=== PATIENT | male | born 1950 | race Caucasian/White ===

== ENCOUNTER 2023-06-09 10:25 | Inpatient (IN) | payer OTHER ==
[~2023-06-09] VITALS: Ht 180.3 cm; Wt 76.4 kg
[~2023-06-09 10:25] MED LIST: QUET50TA15 PO
[2023-06-09] MEDS ORDERED: SODIUM CHLORIDE 0.9% 1,000 ML IV ONE ×2 (10:45→12:30)
[2023-06-09] MEDS ORDERED: ACETAMINOPHEN 1000 MG/ISO-OSM 100 ML IV ONE (10:45)
[2023-06-09 10:56] LABS: BASOPHILS % (AUTO) 0.7 % (0.0-2.0); EOSINOPHILS % (AUTO) 0.4 % (1.0-6.0); HEMOGLOBIN 10.1 g/dL (13.5-17.5); LYMPHOCYTES # (AUTO) 1.3 K/uL (1.0-4.8); LYMPHOCYTES % (AUTO) 15.2 % (22.0-44.0); MEAN CORPUSCULAR HEMOGLOBIN 27.9 pg (26.0-34.0); MEAN CORPUSCULAR HGB CONC 32.7 G/dL (31.0-37.0); MEAN CORPUSCULAR VOLUME 85 fL (80-100); MONOCYTES # (AUTO) 1.7 K/uL (0.1-1.0); NEUTROPHILS # (AUTO) 5.5 K/uL (1.8-7.7); NEUTROPHILS % (AUTO) 63.7 % (40.0-70.0); PLATELET COUNT (AUTO) 261 K/uL (150-450); RED BLOOD CELL COUNT(AUTO) 3.64 MIL/uL (4.50-5.90); RED CELL DISTRIBUTION WIDTH 14.7 % (11.5-14.5)
[2023-06-09 11:06] LABS: ANION GAP 13 mmol/L (8-16); CALCIUM, TOTAL 8.9 mg/dL (8.8-10.5); CARBON DIOXIDE 25 mmol/L (22-29); CHLORIDE 101 mmol/L (98-107); CREATININE 1.56 mg/dL (0.60-1.30); GLOMERULAR FILTR. RATE CALC 44 mL/min (>60); GLUCOSE,RANDOM 165 mg/dL (70-110); POTASSIUM 4.8 mmol/L (3.5-5.1); SODIUM SERUM 139 mmol/L (136-145)
[2023-06-09 11:11] LABS: INR 1.3 (0.9-1.1)
[2023-06-09 11:18] LABS: LACTIC ACID 1.1 mmol/L (0.4-2.0)
[2023-06-09 11:25] LABS: B-TYPE NATRIURETIC PEPTIDE 78 pg/mL (0-100)
[2023-06-09 11:31] LABS: ALANINE AMINOTRANSFERASE 10 U/L (12-78); ALBUMIN 3.2 g/dL (3.4-5.0); ALKALINE PHOSPHATASE 102 U/L (46-116); ASPARTATE AMINOTRANSFERASE 14 U/L (15-37); BILIRUBIN,TOTAL 0.8 mg/dL (0.1-1.0); CREATINE KINASE, TOTAL ONLY 78 U/L (39-308)
[2023-06-09] MEDS ORDERED: CefTRIAXone 1 GM/DEXTROSE 50 ML IV ONE (11:45)
[2023-06-09] MEDS ORDERED: AZITHROMYCIN 500 MG/NS 250 ML IV ONE (11:45)
[2023-06-09 12:04] LABS: COVID AG,FIA SOURCE NASOPHARYNGEAL
[2023-06-09] MEDS ORDERED: ACETAMINOPHEN 325 MG TABLET PO PRN (12:30)
[2023-06-09] MEDS ORDERED: ONDANSETRON HCL 4 MG/2 ML VIAL IVP PRN (12:30)
[2023-06-09] MEDS ORDERED: *CLINICAL-LEVOFLOXACIN IVPB DOSING CLINICAL ONE (12:30)
[2023-06-09 12:41] LABS: INFLUENZA TYPE A NEGATIVE FOR TYPE A (NEGATIVE); INFLUENZA TYPE B NEGATIVE FOR TYPE B (NEGATIVE)
[2023-06-09] MEDS ORDERED: LEVOFLOXACIN 500 MG/D5% WATER 100 ML IV ONE (14:00)
[2023-06-09] MEDS: HEPARIN SODIUM,PORCINE 5,000 UNITS/ML VIAL SQ SCH (16:19)
[2023-06-09] MEDS: CARVEDILOL 6.25 MG TABLET PO SCH (18:50)
[2023-06-09] MEDS: DOCUSATE SODIUM 100 MG CAPSULE PO SCH (22:25)
[2023-06-09 23:14] VITALS: BP 101/86; PULSE 109; RESP 22; TEMP 99.5; O2SAT 95
[2023-06-10] MEDS: HEPARIN SODIUM,PORCINE 5,000 UNITS/ML VIAL SQ SCH ×4 (00:46→23:47)
[2023-06-10 00:47] LABS: APPEARANCE,URINE CLEAR (CLEAR); BILIRUBIN,URINE NEGATIVE (NEGATIVE); GLUCOSE, URINE (UA) NEGATIVE (NEGATIVE); KETONES,URINE NEGATIVE (NEGATIVE); LEUKOCYTE ESTERASE ,URINE NEGATIVE (NEGATIVE); NITRATE,URINE NEGATIVE (NEGATIVE); OCCULT BLOOD,URINE NEGATIVE (NEGATIVE); PH,URINE 5.5 (5.0-8.0); PROTEIN,URINE 30-70 mg/dL (NEGATIVE); SPECIFIC GRAVITIY, URINE 1.008 (1.003-1.030); UROBILINOGEN,URINE <=1.0 mg/dL (<=1.0)
[2023-06-10 04:44] VITALS: BP 143/84; PULSE 99; RESP 20; TEMP 98.8
[2023-06-10 07:32] VITALS: BP 165/86; PULSE 98; RESP 18; TEMP 98.2
[2023-06-10] MEDS: CARVEDILOL 6.25 MG TABLET PO SCH ×2 (09:33→20:41)
[2023-06-10] MEDS: DOCUSATE SODIUM 100 MG CAPSULE PO SCH ×2 (09:34→21:00)
[2023-06-10] MEDS: FAMOTIDINE 20 MG TABLET PO SCH (09:34)
[2023-06-10 11:01] VITALS: BP 146/83; PULSE 86; RESP 21; TEMP 97.8
[2023-06-10] MEDS ORDERED: LEVOFLOXACIN 500 MG/D5% WATER 100 ML IV SCH (14:00)
[2023-06-10 15:13] VITALS: BP 138/68; PULSE 86; RESP 20; TEMP 98.2
[2023-06-10] MEDS: LEVOFLOXACIN 500 MG TABLET PO SCH (15:40)
[2023-06-10 19:21] VITALS: BP 128/63; PULSE 96; RESP 17; TEMP 98.3
[2023-06-10 23:30] VITALS: BP 131/62; PULSE 82; RESP 19; TEMP 98.5
[2023-06-11 03:28] VITALS: BP 120/63; PULSE 81; RESP 19; TEMP 98.3
[2023-06-11 08:12] VITALS: BP 132/74; PULSE 76; RESP 18; TEMP 98
[2023-06-11] MEDS: CARVEDILOL 6.25 MG TABLET PO SCH ×2 (08:25→20:30)
[2023-06-11] MEDS: HEPARIN SODIUM,PORCINE 5,000 UNITS/ML VIAL SQ SCH ×2 (08:25→15:57)
[2023-06-11] MEDS: FAMOTIDINE 20 MG TABLET PO SCH (08:26)
[2023-06-11] MEDS: LEVOFLOXACIN 500 MG TABLET PO SCH (08:26)
[2023-06-11] MEDS: DOCUSATE SODIUM 100 MG CAPSULE PO SCH ×2 (08:26→20:30)
[2023-06-11] MEDS ORDERED: TraZODone HCL 50 MG TABLET PO PRN (10:45)
[2023-06-11] MEDS: GABAPENTIN 100 MG CAPSULE PO SCH ×2 (11:15→20:30)
[2023-06-11 11:26] LABS: BASOPHILS % (AUTO) 0.5 % (0.0-2.0); EOSINOPHILS % (AUTO) 8.4 % (1.0-6.0); HEMOGLOBIN 10.1 g/dL (13.5-17.5); LYMPHOCYTES # (AUTO) 1.2 K/uL (1.0-4.8); LYMPHOCYTES % (AUTO) 18.5 % (22.0-44.0); MEAN CORPUSCULAR HEMOGLOBIN 27.6 pg (26.0-34.0); MEAN CORPUSCULAR HGB CONC 32.5 G/dL (31.0-37.0); MEAN CORPUSCULAR VOLUME 85 fL (80-100); MONOCYTES # (AUTO) 1.1 K/uL (0.1-1.0); MONOCYTES % (AUTO) 16.4 % (2.0-9.0); NEUTROPHILS # (AUTO) 3.7 K/uL (1.8-7.7); NEUTROPHILS % (AUTO) 56.2 % (40.0-70.0); PLATELET COUNT (AUTO) 330 K/uL (150-450); RED BLOOD CELL COUNT(AUTO) 3.65 MIL/uL (4.50-5.90); RED CELL DISTRIBUTION WIDTH 14.6 % (11.5-14.5)
[2023-06-11 11:36] VITALS: BP 141/79; PULSE 99; RESP 16; TEMP 98.3
[2023-06-11 11:39] LABS: CALCIUM, TOTAL 9.1 mg/dL (8.8-10.5); CREATININE 1.4 mg/dL (0.60-1.30); POTASSIUM 4.7 mmol/L (3.5-5.1)
[2023-06-11 15:30] VITALS: BP 129/75; PULSE 98; RESP 20; TEMP 98
[2023-06-11 20:00] VITALS: BP 128/69; PULSE 97; RESP 20; TEMP 98.7
[2023-06-11] MEDS ORDERED: RisperiDONE 0.5 MG TABLET PO SCH (21:00)
[2023-06-12] MEDS: HEPARIN SODIUM,PORCINE 5,000 UNITS/ML VIAL SQ SCH ×2 (08:28)
[2023-06-12] MEDS: CARVEDILOL 6.25 MG TABLET PO SCH (08:28)
[2023-06-12] MEDS: LEVOFLOXACIN 500 MG TABLET PO SCH (08:28)
[2023-06-12] MEDS: DOCUSATE SODIUM 100 MG CAPSULE PO SCH (08:28)
[2023-06-12] MEDS: GABAPENTIN 100 MG CAPSULE PO SCH (08:28)
[2023-06-12] MEDS: FAMOTIDINE 20 MG TABLET PO SCH (08:28)
[2023-06-12 08:58] VITALS: BP 133/78; PULSE 86; RESP 17; TEMP 98.1
[2023-06-12] MEDS ORDERED: LEVO-72 PO ×2 (10:28→11:09)
[2023-06-12 12:47] VITALS: BP 97/57; PULSE 96; RESP 18; TEMP 98.6
== END 2023-06-12 14:10 | disposition home health service (06) | DRG 194 ==
LOC: EMS 10:25 → 6S 12:27 → 5S 23:55
PROVIDERS: ADMIT Internal Medicine; ATTEND Internal Medicine
DX: J18.8 Other pneumonia, unspecified organism (principal); C34.90 Malignant neoplasm of unspecified part of unspecified bronchus or lung; J96.11 Chronic respiratory failure with hypoxia; N17.9 Acute kidney failure, unspecified; C79.31 Secondary malignant neoplasm of brain; Z20.822 Contact with and (suspected) exposure to COVID-19; F25.9 Schizoaffective disorder, unspecified; Z88.5 Allergy status to narcotic agent; Z88.2 Allergy status to sulfonamides; Z99.81 Dependence on supplemental oxygen
CPT/HCPCS: 71045; 80048; 80053; 81003; 82550; 83605; 83880; 84145; 84484; 85025; 85610; 85730; 87040; 87804; 93005; 97163; 99285; J0131; J0456; J0696; J1644; J1956; J7030; 36415-L1; 36415-TC